=== PATIENT | female | born 1975 ===

== ENCOUNTER 2019-12-11 08:08 | Emergency (ER) | payer OTHER ==
[2019-12-11] MEDS ORDERED: LISINOPRIL 20 MG TAB PO ONE (09:32)
[2019-12-11] MEDS ORDERED: KETOROLAC 60 MG/2 ML INJ IM ONE (09:32)
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
--- NOTE | 2019-12-11 10:04 | XRay Report ---
Cervical spine 3 views INDICATION: Neck pain following injury IMPRESSION: No fracture or subluxation of the cervical spine is identified. Multilevel discogenic and uncovertebral type arthropathy present throughout much of the cervical spine. Signer Name: Braxton Sawyer MD Signed: 12/11/2019 9:59 AM Workstation Name: [id number]
--- NOTE | 2019-12-11 10:04 | XRay Report ---
Right knee 3 views INDICATION: Right knee pain following injury IMPRESSION: No fracture or subluxation of the right knee is identified. Signer Name: Braxton Sawyer MD Signed: 12/11/2019 9:59 AM Workstation Name: [id number]
[2019-12-11 11:40] VITALS: BP 137/82
== END 2019-12-11 11:45 | disposition home or self-care (01) ==
LOC: ED 08:08
DX: S16.1XXA Strain of muscle, fascia and tendon at neck level, initial encounter (principal); S83.8X1A Sprain of other specified parts of right knee, initial encounter; I10 Essential (primary) hypertension; Z90.49 Acquired absence of other specified parts of digestive tract; V89.2XXA Person injured in unspecified motor-vehicle accident, traffic, initial encounter; Y93.89 Activity, other specified; Y92.410 Unspecified street and highway as the place of occurrence of the external cause; Y99.8 Other external cause status
CPT/HCPCS: 29505; 72040; 73562; 96372; 99284; J1885